=== PATIENT | female | born 1990 | race Two or more races ===

== ENCOUNTER 2017-05-22 23:14 | Emergency (ER) | payer SELFPAY ==
[~2017-05-22] VITALS: Ht 157.5 cm; Wt 49.9 kg
[2017-05-22] MEDS ORDERED: IBUPROFEN 600 MG TABLET PO ONE ×2 (23:30→23:54)
--- NOTE | 2017-05-22 23:34 | NUR ---
pt brib mother for grown level fall while running per pt "i was running and fell forward, i remember everythig upto and post fall" abrassions to nasal fold/lip/chin/bilateral knees, actively leeding scant amount of blood. denies taking any pain medication at home. CMS intact, NAD noted. EMT bedside irrigating wounds with NS.
--- NOTE | 2017-05-23 00:45 | NUR ---
pt resting in bed, mother is bedside, NAD noted, waiting on CT results
[2017-05-23] MEDS ORDERED: LIDOCAINE /MPF 1% VIAL 5 ML VIAL ONE (00:50)
--- NOTE | 2017-05-23 00:55 | NUR ---
VANNA sauceda for lac repair to lower inner lip.
[2017-05-23 01:10] VITALS: BP 128/68
== END 2017-05-23 01:11 | disposition home or self-care (01) ==
LOC: ER 23:18
DX: S01.511A Laceration without foreign body of lip, initial encounter (principal); S00.83XA Contusion of other part of head, initial encounter; S00.31XA Abrasion of nose, initial encounter; W01.198A Fall on same level from slipping, tripping and stumbling with subsequent striking against other object, initial encounter; Y92.89 Other specified places as the place of occurrence of the external cause; Y93.89 Activity, other specified; Y99.8 Other external cause status
CPT/HCPCS: 12011; 70486; 99284; A4606; A6402; J3490; Z7610